=== PATIENT | male | born 1960 | race Caucasian/White ===

== ENCOUNTER 2023-04-02 01:24 | Emergency (ER) | payer BC, OTHER ==
[~2023-04-02] VITALS: Ht 172.7 cm; Wt 111.1 kg
[2023-04-02] MEDS ORDERED: HYDROCODONE/APAP 5/325MG TABLET ONE (01:58)
[2023-04-02] MEDS: HYDROCODONE/APAP 5/325MG TABLET PO ONE (02:15)
[2023-04-02] MEDS ORDERED: HYDR-3972 PO (03:18)
[2023-04-02 03:32] VITALS: BP 131/77; TEMP 98.1; O2SAT 98
== END 2023-04-02 03:32 | disposition home or self-care (01) ==
LOC: ER 01:35
DX: G89.29 Other chronic pain (principal); M54.50 Low back pain, unspecified; I10 Essential (primary) hypertension; Z79.899 Other long term (current) drug therapy
CPT/HCPCS: 72131-TC